=== PATIENT | female | born 2000 | race Hispanic/Latino ===

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

== ENCOUNTER 2022-03-25 18:33 | Emergency (ER) | payer OTHER ==
[~2022-03-25] VITALS: Ht 167.6 cm; Wt 72.6 kg
[~2022-03-25 18:33] MED LIST: CLINDAMYCIN HC300 MG PO; ULTRAM50 MG PO
[2022-03-25] MEDS ORDERED: KETOROLAC TROMETHAMINE 30 MG/ML VIAL IV STA (18:53)
[2022-03-25 19:08] LABS: BASOPHILS % 0.4 % (0.0-1.0); EOSINOPHILS # (AUTO) 0.2 (0.0-0.4); EOSINOPHILS % 2.7 % (0.0-6.0); HEMOGLOBIN 13.6 g/dL (12.0-16.0); LYMPHOCYTES # (AUTO) 2.2 (1.0-3.2); LYMPHOCYTES % 32.8 % (18.0-39.1); MEAN CORPUSCULAR HEMOGLOBIN 31.9 pg (28-32); MEAN CORPUSCULAR VOLUME 93.7 fL (81-99); MONOCYTES # (AUTO) 0.4 (0.2-0.8); MONOCYTES % 5.7 % (4.4-11.3); NEUTROPHILS # (AUTO) 3.9 (2.1-6.9); NEUTROPHILS % 58.1 % (38.7-80.0); PLATELET COUNT 280 x10e3/uL (140-360); RED BLOOD COUNT 4.27 x10e6/uL (3.6-5.1); RED CELL DISTRIBUTION WIDTH 11.8 % (11.7-14.4)
[2022-03-25 19:09] LABS: CLARITY,URINE HAZY (CLEAR); COLOR,URINE YELLOW (YELLOW); KETONES,URINE NEGATIVE (NEGATIVE); LEUKOCYTE ESTERASE ,URINE NEGATIVE (NEGATIVE); NITRITE,URINE NEGATIVE (NEGATIVE); PROTEIN,URINE DIPSTICK NEGATIVE (NEGATIVE); URINE UROBILINOGEN 0.2 mg/dL (0.2 - 1)
[2022-03-25 19:12] LABS: AMORPHOUS SEDIMENT,URINE FEW (FEW); BACTERIA,URINE FEW /HPF; EPITHELIAL CELLS,URINE FEW /LPF; RBC,URINE 0-5 /HPF (0-5); WBC,URINE (MAN) 0-5 /HPF (0-5)
[2022-03-25 19:29] LABS: ALBUMIN 4.3 g/dL (3.5-5.0); ALBUMIN/GLOBULIN RATIO 1.4 (0.8-2.0); ANION GAP 14.4 mmol/L (8-16); CALCIUM 9.4 mg/dL (8.4-10.2); CREATININE, SERUM 0.74 mg/dL (0.57-1.11); POTASSIUM 3.4 mmol/L (3.5-5.1)
[2022-03-25 19:30] LABS: LIPASE 30 U/L (8-78)
[2022-03-25] MEDS ORDERED: IOPAMIDOL 370 MG/ML 100 ML INFUS..BTL INJ ONE (20:33)
[2022-03-25] MEDS ORDERED: NAPROSYN500 MG PO (21:59)
[2022-03-25] MEDS ORDERED: HYDROCODON-ACE1 EAC9 PO (21:59)
[2022-03-25 23:14] VITALS: BP 133/78
== END 2022-03-25 22:14 | disposition home or self-care (01) ==
LOC: ER 18:45 → MERGE 18:45 → ER 22:14
DX: R10.32 Left lower quadrant pain (principal); K63.89 Other specified diseases of intestine
CPT/HCPCS: 36415; 74177; 80053; 81001; 83690; 84702; 85025; 99284; J1885; Q9967

== ENCOUNTER 2022-05-14 13:40 | Emergency (ER) | payer OTHER ==
[~2022-05-14] VITALS: Ht 167.6 cm; Wt 72.6 kg
[~2022-05-14 13:40] MED LIST changes: +HYDROCODON-ACE1 EAC9 PO; +NAPROSYN500 MG PO
[2022-05-14] MEDS ORDERED: ONDANSETRON HCL INJ 2MG/ML 2ML 2 MG/ML VIAL IV ONE (14:19)
[2022-05-14] MEDS ORDERED: KETOROLAC TROMETHAMINE 30 MG/ML VIAL IV ONE (14:19)
[2022-05-14] MEDS ORDERED: SODIUM CHLORIDE 0.9% 1000ML 1,000 ML IV ONE (14:30)
[2022-05-14 14:40] LABS: BASOPHILS # (AUTO) 0.1 (0.0-0.1); BASOPHILS % 0.7 % (0.0-1.0); EOSINOPHILS # (AUTO) 0.2 (0.0-0.4); EOSINOPHILS % 2.8 % (0.0-6.0); HEMATOCRIT 40.4 % (34.2-44.1); HEMOGLOBIN 14.5 g/dL (12.0-16.0); LYMPHOCYTES # (AUTO) 0.6 (1.0-3.2); LYMPHOCYTES % 8.4 % (18.0-39.1); MEAN CORPUSCULAR HEMOGLOBIN 31.9 pg (28-32); MEAN CORPUSCULAR HGB CONC 35.9 g/dL (31-35); MEAN CORPUSCULAR VOLUME 88.8 fL (81-99); MONOCYTES # (AUTO) 0.6 (0.2-0.8); MONOCYTES % 8.9 % (4.4-11.3); NEUTROPHILS # (AUTO) 5.5 (2.1-6.9); NEUTROPHILS % 78.6 % (38.7-80.0); PLATELET COUNT 251 x10e3/uL (140-360); RED BLOOD COUNT 4.55 x10e6/uL (3.6-5.1); RED CELL DISTRIBUTION WIDTH 11.7 % (11.7-14.4)
[2022-05-14 15:09] LABS: CLARITY,URINE CLEAR (CLEAR); COLOR,URINE YELLOW (YELLOW); LEUKOCYTE ESTERASE ,URINE NEGATIVE (NEGATIVE); NITRITE,URINE NEGATIVE (NEGATIVE); PROTEIN,URINE DIPSTICK NEGATIVE (NEGATIVE)
[2022-05-14 15:10] LABS: KETONES,URINE NEGATIVE (NEGATIVE); URINE UROBILINOGEN 0.2 mg/dL (0.2 - 1)
[2022-05-14 15:12] LABS: ALBUMIN 4.7 g/dL (3.5-5.0); ALBUMIN/GLOBULIN RATIO 1.5 (0.8-2.0); CALCIUM 9.4 mg/dL (8.4-10.2); CREATININE, SERUM 0.75 mg/dL (0.57-1.11); POTASSIUM 3.5 mmol/L (3.5-5.1)
[2022-05-14 15:32] LABS: ANION GAP 15.5 mmol/L (8-16)
[2022-05-14 15:33] LABS: BACTERIA,URINE RARE /HPF; EPITHELIAL CELLS,URINE RARE /LPF; WBC,URINE (MAN) 0-5 /HPF (0-5)
[2022-05-14] MEDS ORDERED: IOPAMIDOL 370 MG/ML 100 ML INFUS..BTL INJ ONE (15:59)
[2022-05-14] MEDS ORDERED: ONDANSETRON ODT4 MG PO (17:11)
== END 2022-05-14 17:28 | disposition home or self-care (01) ==
LOC: ER 13:45
DX: R10.32 Left lower quadrant pain (principal); R11.2 Nausea with vomiting, unspecified
CPT/HCPCS: 36415; 74177; 80053; 81001; 83690; 84702; 85025; 99284; Q9967

== ENCOUNTER 2022-09-28 04:35 | Observation (INO) | payer OTHER ==
[~2022-09-28] VITALS: Ht 167.6 cm; Wt 72.6 kg
[~2022-09-28 04:35] MED LIST changes: +ONDANSETRON ODT4 MG PO
[2022-09-28] MEDS ORDERED: ONDANSETRON HCL INJ 2MG/ML 2ML 2 MG/ML VIAL IV STA ×2 (04:56→09:36)
[2022-09-28] MEDS ORDERED: Morphine 4mg INJECTION 4 MG/ML INJ IV ONE (05:00)
[2022-09-28 05:07] LABS: BASOPHILS # (AUTO) 0.1 (0.0-0.1); BASOPHILS % 0.5 % (0.0-1.0); EOSINOPHILS # (AUTO) 0.2 (0.0-0.4); EOSINOPHILS % 1.3 % (0.0-6.0); HEMATOCRIT 40.5 % (34.2-44.1); HEMOGLOBIN 13.8 g/dL (12.0-16.0); LYMPHOCYTES # (AUTO) 0.9 (1.0-3.2); LYMPHOCYTES % 7.3 % (18.0-39.1); MEAN CORPUSCULAR HEMOGLOBIN 31.5 pg (28-32); MEAN CORPUSCULAR HGB CONC 34.1 g/dL (31-35); MEAN CORPUSCULAR VOLUME 92.5 fL (81-99); MONOCYTES # (AUTO) 0.6 (0.2-0.8); NEUTROPHILS # (AUTO) 10.3 (2.1-6.9); NEUTROPHILS % 85.5 % (38.7-80.0); PLATELET COUNT 259 x10e3/uL (140-360); RED BLOOD COUNT 4.38 x10e6/uL (3.6-5.1); RED CELL DISTRIBUTION WIDTH 12.1 % (11.7-14.4)
[2022-09-28 05:26] LABS: LIPASE 31 U/L (8-78)
[2022-09-28 05:30] LABS: ALBUMIN 4.4 g/dL (3.5-5.0); ALBUMIN/GLOBULIN RATIO 1.3 (0.8-2.0); ANION GAP 13.7 mmol/L (8-16); CALCIUM 8.8 mg/dL (8.4-10.2); CREATININE, SERUM 0.77 mg/dL (0.57-1.11); POTASSIUM 3.7 mmol/L (3.5-5.1)
[2022-09-28] MEDS ORDERED: IOPAMIDOL 610MG/1ML 300 MG/ML VIAL IV ONE (05:50)
[2022-09-28 06:25] LABS: CLARITY,URINE CLEAR (CLEAR); COLOR,URINE YELLOW (YELLOW); KETONES,URINE NEGATIVE (NEGATIVE); LEUKOCYTE ESTERASE ,URINE NEGATIVE (NEGATIVE); NITRITE,URINE NEGATIVE (NEGATIVE); PROTEIN,URINE DIPSTICK NEGATIVE (NEGATIVE); URINE UROBILINOGEN 0.2 mg/dL (0.2 - 1)
[2022-09-28 06:30] LABS: BACTERIA,URINE RARE /HPF; EPITHELIAL CELLS,URINE FEW /LPF; RBC,URINE 0-5 /HPF (0-5); WBC,URINE (MAN) 0-5 /HPF (0-5)
[2022-09-28] MEDS ORDERED: Morphine 2mg Syringe 2 MG/ML SYR ONE (07:08)
[2022-09-28] MEDS ORDERED: PIPERACILLIN/TAZOBACTAM 3.375 GM VIAL ONE (07:09)
[2022-09-28] MEDS ORDERED: Morphine 2mg Syringe 2 MG/ML SYR IV ONE (07:30)
[2022-09-28] MEDS ORDERED: FENTANYL CITRATE/PF 100MCG/2 ML INJ IV STA ×2 (07:46→10:16)
[2022-09-28] MEDS: D5.45%NS/KCL 20MEQ 1,000 ML IV SCH ×3 (10:33→23:15)
[2022-09-28] MEDS ORDERED: ROCURONIUM BROMIDE 10 MG/ML 5ML VIAL IV ONE (11:45)
[2022-09-28] MEDS ORDERED: POVIDONE IODINE 0.05% 0.05 % ML PO ONE (11:45)
[2022-09-28] MEDS ORDERED: PROPOFOL IV EMULSION 10 MG/ML 20 ML VIAL ONE (11:45)
[2022-09-28] MEDS ORDERED: LIDOCAINE HCL 2% LOCAL INJ 5 ML SDV VIAL INJ ONE (11:45)
[2022-09-28] MEDS ORDERED: SEVOFLURANE INHAL SOLN 250 ML PEN BTL ONE (11:45)
[2022-09-28] MEDS ORDERED: MIDAZOLAM HCL 2 MG/2 ML VIAL ONE (12:47)
[2022-09-28] MEDS ORDERED: FENTANYL CITRATE/PF 100MCG/2 ML INJ ONE (12:47)
[2022-09-28] MEDS ORDERED: ACETAMINOPHEN 1000 MG/100 ML 100 ML IV ONE (14:13)
[2022-09-28] MEDS ORDERED: SUGAMMADEX SODIUM 200 MG/2 ML VIAL IV ONE (14:13)
[2022-09-28] MEDS: HYDROMORPHONE 1MG/1ML INJ IV PRN ×2 (14:41→17:30)
[2022-09-28 15:45] VITALS: BP 142/72
[2022-09-28 16:37] VITALS: BP 145/70
[2022-09-28 17:00] VITALS: BP 145/70
[2022-09-28] MEDS ORDERED: BUPIVACAINE 0.25% 30ML SDV ONE (18:32)
[2022-09-28] MEDS ORDERED: ONDANSETRON HCL INJ 2MG/ML 2ML 2 MG/ML VIAL IV PRN (20:00)
[2022-09-28] MEDS ORDERED: KETOROLAC TROMETHAMINE 30 MG/ML VIAL IV PRN (20:00)
[2022-09-28] MEDS: SODIUM CHLORIDE 0.9% 1000ML 1,000 ML IV SCH (21:34)
[2022-09-28] MEDS: HYDROCODONE/APAP 7.5MG-325MG 1 EA TAB PO PRN (21:34)
[2022-09-28 22:12] VITALS: BP 135/79
[2022-09-28 23:05] VITALS: BP 135/79
[2022-09-29 01:49] VITALS: BP 109/63
[2022-09-29] MEDS: HYDROCODONE/APAP 7.5MG-325MG 1 EA TAB PO PRN ×2 (04:07→13:57)
[2022-09-29 05:26] VITALS: BP 123/66
[2022-09-29] MEDS: SODIUM CHLORIDE 0.9% 1000ML 1,000 ML IV SCH (05:31)
[2022-09-29 06:38] LABS: BASOPHILS % 0.4 % (0.0-1.0); EOSINOPHILS # (AUTO) 0.1 (0.0-0.4); EOSINOPHILS % 0.6 % (0.0-6.0); HEMATOCRIT 35.1 % (34.2-44.1); LYMPHOCYTES # (AUTO) 1.3 (1.0-3.2); LYMPHOCYTES % 13.7 % (18.0-39.1); MEAN CORPUSCULAR HGB CONC 34.2 g/dL (31-35); MEAN CORPUSCULAR VOLUME 93.6 fL (81-99); MONOCYTES # (AUTO) 0.8 (0.2-0.8); MONOCYTES % 8.1 % (4.4-11.3); NEUTROPHILS # (AUTO) 7.3 (2.1-6.9); NEUTROPHILS % 76.8 % (38.7-80.0); PLATELET COUNT 222 x10e3/uL (140-360); RED BLOOD COUNT 3.75 x10e6/uL (3.6-5.1); RED CELL DISTRIBUTION WIDTH 12.2 % (11.7-14.4)
[2022-09-29 07:19] LABS: ANION GAP 13.2 mmol/L (8-16); CALCIUM 8.1 mg/dL (8.4-10.2); CREATININE, SERUM 0.62 mg/dL (0.57-1.11); POTASSIUM 3.2 mmol/L (3.5-5.1)
[2022-09-29 08:26] VITALS: BP 122/68
[2022-09-29] MEDS: D5.45%NS/KCL 20MEQ 1,000 ML IV SCH (09:10)
[2022-09-29] MEDS: HYDROMORPHONE 1MG/1ML INJ IV PRN (09:10)
[2022-09-29 09:28] VITALS: BP 122/68
[2022-09-29 11:40] VITALS: BP 130/65
[2022-09-29 16:16] VITALS: BP 121/64
== END 2022-09-29 16:50 | disposition home or self-care (01) ==
LOC: ER 04:44 → ERHOLD 07:09 → MED/SURG2 14:04
PROVIDERS: ADMIT Surgery; ATTEND Surgery
DX: K35.80 Unspecified acute appendicitis (principal); N83.202 Unspecified ovarian cyst, left side; Z20.822 Contact with and (suspected) exposure to COVID-19; Z87.19 Personal history of other diseases of the digestive system
CPT/HCPCS: 36415 ×2; 44970; 49322; 74177; 80048; 80053; 81001; 83690; 84702; 85025 ×2; 88304; 96360; 96361; 99285; C1766; C9113; G0378 ×2; J0131; J0690; J1170 ×2; J1885; J2001; J2250; J2270 ×2; J2405; J2543 ×2; J2704; J3010; J7030; Q9967; U0002

== ENCOUNTER 2022-10-24 18:12 | Emergency (ER) | payer OTHER ==
[~2022-10-24] VITALS: Ht 167.6 cm; Wt 72.6 kg
[2022-10-24 18:15] VITALS: O2SAT 100
== END 2022-10-24 19:40 | disposition home or self-care (01) ==
LOC: ER 18:29
DX: G89.18 Other acute postprocedural pain (principal); Z98.890 Other specified postprocedural states; R10.33 Periumbilical pain
CPT/HCPCS: 99282

== ENCOUNTER 2022-12-12 18:03 | Emergency (ER) | payer OTHER ==
[~2022-12-12] VITALS: Ht 167.6 cm; Wt 72.6 kg
[2022-12-12] MEDS ORDERED: ONDANSETRON HCL INJ 2MG/ML 2ML 2 MG/ML VIAL IV STA (18:54)
[2022-12-12] MEDS ORDERED: LACTATED RINGER'S 1,000 ML IV ONE (19:00)
[2022-12-12] MEDS ORDERED: ONDANSETRON ODT4 MG PO (19:12)
[2022-12-12] MEDS ORDERED: DICYCLOMINE HCL20 MG PO (19:12)
[2022-12-12] MEDS ORDERED: DICYCLOMINE HCL 20 MG/2 ML VIAL IM ONE ×2 (19:14→19:30)
[2022-12-12] MEDS ORDERED: DICYCLOMINE HCL 20 MG TAB PO ONE (19:15)
[2022-12-12 19:17] LABS: CLARITY,URINE CLEAR (CLEAR); COLOR,URINE YELLOW (YELLOW)
[2022-12-12 19:18] LABS: KETONES,URINE NEGATIVE (NEGATIVE); LEUKOCYTE ESTERASE ,URINE NEGATIVE (NEGATIVE); NITRITE,URINE NEGATIVE (NEGATIVE); PROTEIN,URINE DIPSTICK NEGATIVE (NEGATIVE); URINE UROBILINOGEN 0.2 mg/dL (0.2 - 1)
[2022-12-12 19:28] LABS: BACTERIA,URINE FEW /HPF; EPITHELIAL CELLS,URINE MODERATE /LPF; RBC,URINE 0-5 /HPF (0-5)
[2022-12-12 19:28] LABS: BASOPHILS # (AUTO) 0.1 (0.0-0.1); EOSINOPHILS # (AUTO) 0.1 (0.0-0.4); EOSINOPHILS % 1.7 % (0.0-6.0); HEMATOCRIT 39.3 % (34.2-44.1); LYMPHOCYTES # (AUTO) 1.7 (1.0-3.2); MEAN CORPUSCULAR HGB CONC 35.6 g/dL (31-35); MEAN CORPUSCULAR VOLUME 86.9 fL (81-99); MONOCYTES # (AUTO) 0.5 (0.2-0.8); MONOCYTES % 10.2 % (4.4-11.3); NEUTROPHILS # (AUTO) 2.8 (2.1-6.9); NEUTROPHILS % 54.9 % (38.7-80.0); PLATELET COUNT 263 x10e3/uL (140-360); RED BLOOD COUNT 4.52 x10e6/uL (3.6-5.1); RED CELL DISTRIBUTION WIDTH 12.2 % (11.7-14.4)
[2022-12-12 19:46] LABS: ALANINE AMINOTRANSFERASE 41 IU/L (0-55); ALBUMIN 4.6 g/dL (3.5-5.0); ALBUMIN/GLOBULIN RATIO 1.5 (0.8-2.0); ALKALINE PHOSPHATASE 84 IU/L (40-150); ANION GAP 13.3 mmol/L (8-16); BLOOD UREA NITROGEN 8 mg/dL (7-26); BUN/CREATININE RATIO 10 (6-25); CALCIUM 9.1 mg/dL (8.4-10.2); CARBON DIOXIDE 23 mmol/L (22-29); CHLORIDE 104 mmol/L (98-107); CREATININE, SERUM 0.81 mg/dL (0.57-1.11); GLUCOSE 88 mg/dL (74-118); LIPASE 28 U/L (8-78); POTASSIUM 3.3 mmol/L (3.5-5.1); SODIUM 137 mmol/L (136-145)
[2022-12-12 20:18] VITALS: BP 102/73; O2SAT 100
== END 2022-12-12 20:13 | disposition home or self-care (01) ==
LOC: ER 18:47
DX: R11.2 Nausea with vomiting, unspecified (principal); R19.7 Diarrhea, unspecified; R10.9 Unspecified abdominal pain
CPT/HCPCS: 36415; 80053; 81001; 83690; 84702; 85025; 99284; J0500; J2405; J7121

== ENCOUNTER 2024-01-06 18:36 | Emergency (ER) | payer OTHER ==
[~2024-01-06] VITALS: Ht 167.6 cm; Wt 72.6 kg
[~2024-01-06 18:36] MED LIST changes: +DICYCLOMINE HCL20 MG PO; +ONDANSETRON ODT4 MG SL; +PANTOPRAZOLE SO40 MG PO
[2024-01-06 19:18] VITALS: TEMP 99.3
[2024-01-06 19:44] LABS: BASOPHILS % 0.6 % (0.0-1.0); EOSINOPHILS # (AUTO) 0.2 (0.0-0.4); EOSINOPHILS % 2.4 % (0.0-6.0); HEMATOCRIT 39.1 % (34.2-44.1); HEMOGLOBIN 13.5 g/dL (12.0-16.0); LYMPHOCYTES # (AUTO) 1.8 (1.0-3.2); LYMPHOCYTES % 25.2 % (18.0-39.1); MEAN CORPUSCULAR HEMOGLOBIN 31.7 pg (28-32); MEAN CORPUSCULAR HGB CONC 34.5 g/dL (31-35); MEAN CORPUSCULAR VOLUME 91.8 fL (81-99); MONOCYTES # (AUTO) 0.5 (0.2-0.8); MONOCYTES % 6.3 % (4.4-11.3); NEUTROPHILS # (AUTO) 4.7 (2.1-6.9); NEUTROPHILS % 65.2 % (38.7-80.0); PLATELET COUNT 283 x10e3/uL (140-360); RED BLOOD COUNT 4.26 x10e6/uL (3.6-5.1); RED CELL DISTRIBUTION WIDTH 12.2 % (11.7-14.4); WHITE BLOOD COUNT 7.19 x10e3/uL (4.8-10.8)
[2024-01-06 19:55] LABS: ANION GAP 16.6 mmol/L (8-16); CALCIUM 8.9 mg/dL (8.4-10.2); CREATININE, SERUM 0.73 mg/dL (0.57-1.11); POTASSIUM 3.6 mmol/L (3.5-5.1)
[2024-01-06] MEDS ORDERED: IOPAMIDOL 370 MG/ML 100 ML INFUS..BTL INJ ONE (20:25)
[2024-01-06] MEDS ORDERED: SODIUM CHLORIDE 0.9% 100 ML ONE (20:25)
[2024-01-06 21:24] VITALS: PULSE 85; RESP 16; O2SAT 100
[2024-01-06] MEDS ORDERED: MEDROL4 M2 PO (23:05)
[2024-01-06] MEDS ORDERED: CYCLOBENZAPRINE5 MG PO (23:05)
== END 2024-01-06 22:30 | disposition home or self-care (01) ==
LOC: ER 18:42
DX: G44.209 Tension-type headache, unspecified, not intractable (principal); M62.838 Other muscle spasm; M54.2 Cervicalgia
CPT/HCPCS: 36415; 70450; 70496; 70498; 80048; 84702; 85025; 99284; J7050; Q9967

== ENCOUNTER 2024-07-29 21:57 | Emergency (ER) | payer OTHER ==
[~2024-07-29] VITALS: Ht 170.2 cm; Wt 79.4 kg
[~2024-07-29 21:57] MED LIST changes: +CYCLOBENZAPRINE5 MG PO; +MEDROL4 M2 PO
[2024-07-29 22:11] VITALS: TEMP 98.7
[2024-07-29] MEDS: ACETAMINOPHEN 325 MG TAB PO ONE (23:42)
[2024-07-29 23:43] VITALS: PULSE 63; RESP 15
[2024-07-30 01:54] VITALS: BP 118/87; PULSE 84; RESP 18; TEMP 97.7; O2SAT 98
== END 2024-07-30 01:56 | disposition home or self-care (01) ==
LOC: ER 22:05
DX: R42 Dizziness and giddiness (principal); S06.0X0A Concussion without loss of consciousness, initial encounter; W01.198A Fall on same level from slipping, tripping and stumbling with subsequent striking against other object, initial encounter; Y93.01 Activity, walking, marching and hiking; Y92.89 Other specified places as the place of occurrence of the external cause; Z87.19 Personal history of other diseases of the digestive system
CPT/HCPCS: 70450; 72125; 81025; 99283

== ENCOUNTER 2025-03-16 11:27 | Emergency (ER) | payer OTHER ==
[~2025-03-16] VITALS: Ht 170.2 cm; Wt 79.8 kg
[2025-03-16 12:31] VITALS: TEMP 99
[2025-03-16 13:28] LABS: BASOPHILS % 0.8 % (0.0-1.0); EOSINOPHILS % 0.8 % (0.0-6.0); LYMPHOCYTES % 20.4 % (18.0-39.1); MONOCYTES % 6.0 % (4.4-11.3); NEUTROPHILS % 71.3 % (38.7-80.0); RED CELL DISTRIBUTION WIDTH 12.4 % (11.7-14.4)
[2025-03-16] MEDS: ONDANSETRON HCL INJ 2MG/ML 2ML 2 MG/ML VIAL IV STA ×2 (13:34→15:00)
[2025-03-16] MEDS: SODIUM CHLORIDE 0.9% 1000ML 1,000 ML IV STA (13:35)
[2025-03-16 13:36] LABS: INR 1.04
[2025-03-16 13:42] LABS: LEUKOCYTE ESTERASE ,URINE NEGATIVE (NEGATIVE); PROTEIN,URINE DIPSTICK 2+ (NEGATIVE); URINE UROBILINOGEN 0.2 mg/dL (0.2 - 1)
[2025-03-16 13:46] LABS: EST GLOMERULAR FILTRATION RATE 114 ML/MIN (>=60)
[2025-03-16] MEDS ORDERED: IOPAMIDOL 370 MG/ML 100 ML INFUS..BTL INJ ONE (13:47)
[2025-03-16 14:06] LABS: EPITHELIAL CELLS,URINE MODERATE /LPF; WBC,URINE (MAN) 0-5 /HPF (0-5)
[2025-03-16] MEDS: KETOROLAC TROMETHAMINE 30 MG/ML VIAL IV STA (15:00)
[2025-03-16] MEDS ORDERED: CARAFATE1 GM PO (15:15)
[2025-03-16] MEDS ORDERED: PANTOPRAZOLE SO40 MG PO (15:15)
[2025-03-16] MEDS ORDERED: ONDANSETRON ODT4 MG PO (15:15)
[2025-03-16] MEDS ORDERED: DICYCLOMINE HCL20 MG PO (15:15)
[2025-03-16 15:20] VITALS: PULSE 59; RESP 18; O2SAT 100
[2025-03-18] MEDS ORDERED: ONDANSETRON ODT8 MG PO (09:49)
== END 2025-03-16 15:40 | disposition home or self-care (01) ==
LOC: ER 12:33
DX: R10.30 Lower abdominal pain, unspecified (principal); K29.70 Gastritis, unspecified, without bleeding; R11.2 Nausea with vomiting, unspecified; K21.9 Gastro-esophageal reflux disease without esophagitis; Z87.19 Personal history of other diseases of the digestive system
CPT/HCPCS: 36415; 71045; 74177; 80053; 81001; 83690; 83735; 84702; 85025; 85610; 85730; 99284; J1885; J2405; J2470; J7030; Q9967